=== PATIENT | female | born 1960 | race Two or more races ===

== ENCOUNTER 2019-12-14 07:35 | Day surgery (SDC) | payer BC ==
[2019-12-12 10:20] LABS: BASOPHILS % (AUTO) 0.4 % (0.0-2.0); EOSINOPHILS % (AUTO) 3.7 % (0.0-3.0); HEMATOCRIT 46.4 % (37.0-47.0); HEMOGLOBIN 14.8 G/DL (12.0-16.0); LYMPHOCYTES % (AUTO) 26.1 % (20.0-45.0); MEAN CORPUSCULAR VOLUME 95 FL (80-99); MONOCYTES % (AUTO) 13.2 % (1.0-10.0); NEUTROPHILS % (AUTO) 56.6 % (45.0-75.0); PLATELET COUNT 266 K/UL (150-450); RED BLOOD COUNT 4.87 M/UL (4.20-5.40); RED CELL DISTRIBUTION WIDTH 12.8 % (11.6-14.8)
[2019-12-12 10:32] LABS: ANION GAP 8 mmol/L (5-15); BLOOD UREA NITROGEN 14 mg/dL (7-18); CARBON DIOXIDE 26 MMOL/L (21-32); CHLORIDE 105 MMOL/L (98-107); CREATININE 0.9 MG/DL (0.55-1.30); POTASSIUM 4.4 MMOL/L (3.5-5.1); SODIUM 139 MMOL/L (136-145)
[2019-12-12 10:42] LABS: ALANINE AMINOTRANSFERASE 28 U/L (12-78); ALBUMIN 3.6 G/DL (3.4-5.0); ALBUMIN/GLOBULIN RATIO 0.9 (1.0-2.7); ALKALINE PHOSPHATASE 59 U/L (46-116); ASPARTATE AMINO TRANSFERASE 21 U/L (15-37); BILIRUBIN,TOTAL 1.7 MG/DL (0.2-1.0)
[2019-12-12 10:53] LABS: BILIRUBIN,DIRECT 0.3 MG/DL (0.0-0.3)
--- NOTE | 2019-12-12 11:00 | Pre-op HX & Phy Repo 2 SIG ---
DATE OF ENDOSCOPY: 12/14/2019 PRE-ENDOSCOPY HISTORY AND PHYSICAL SCHEDULED FOR KOCK POUCH ENDOSCOPY: 12/14/2019. HISTORY OF PRESENT ILLNESS: The patient is a 59-year-old female in overall good health who presented in September 2019 for consultation about difficulty with her Kock pouch continent ileostomy. She had a history of ulcerative colitis and underwent total colectomy with Shena ileostomy in 1981 and then there was an attempted reconnection of her ileum to the remaining rectum in 1982 that failed and in 1987, she underwent abdomino-perineal proctectomy with creation of a Kock pouch continent ileostomy. In 2007 she required revision for prolapse and her pouch was converted to a T-pouch version of the Kock pouch by Dr. Lei Weeks in [facility]. Recently, the patient has been bothered with increasing gas and difficulty intubating with episodes of vomiting. She has had to use a smaller 27-Tanzanian catheter instead of her usual 30-Tanzanian catheter. She also has had incontinence of gas with a full pouch. She intubates 4 times a day if she does not eat at all, but 8 times a day if she eats normally. Her output is always watery and she has had bleeding with the stool with every intubation. Following that consultation, I treated the patient with Cipro 500 mg orally every 12 hours and Flagyl 250 mg orally 3 times a day and within 24 hours of starting that regimen, she reported what she said was an amazing difference in how she felt. She was able to intubate only 3 to 4 times a day and sleep through the night. She is able to eat well with no difficulty intubating. She was still seeing some bleeding. The patient got off antibiotics and had another episode of pouchitis the end of October, went back on Cipro and Flagyl, and then she used an old catheter, but the tip of the catheter broke off and remains in the pouch. The patient is scheduled to undergo endoscopy for recurrent pouchitis to assess the status of the pouch mucosa and to extract the catheter remnant from her pouch with anesthesia sedation. PAST MEDICAL HISTORY/MEDICATIONS: Premarin. ALLERGIES: Penicillin. OPERATIONS: In addition to the above, sections. PHYSICAL EXAMINATION: GENERAL: The patient is 5 feet 2 inches, 152 pounds. She is arriving from out of town and will be examined upon arrival and dictated separately. IMPRESSION: 1. 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 2. History of ulcerative colitis. 3. Status post multiple abdominal operations. 3.1. Abdominal colectomy with Shena ileostomy in 1981. 3.2. Reconnection of ileum to rectum in 1982. 3.3. Abdomino-perineal proctectomy with creation of a Kock pouch continent ileostomy in 1987. 3.4. Revision of Kock pouch into the T-pouch version of the Kock pouch for prolapse in 2007. PLAN: I have had a full discussion with the patient regarding the nature of the condition, the nature of the pouch endoscopy that I will be assisting bilingual legal assistant, Dr. Camilo Kamara due to his expertise in not only diagnostic endoscopy, but therapeutic maneuvers, etc. All questions have been answered. She understands and agrees to proceed. Eron Mcrae M.D. DR: ROSA M JOB#: [id number] CC: LILIYA
[2019-12-14] VITALS (8 sets, daily range): BP systolic 115–129; BP diastolic 66–83
[~2019-12-14] VITALS: Ht 157.5 cm; Wt 64.9 kg
[~2019-12-14 07:35] MED LIST: ESTRACE1 MG ORAL; FISH OIL CAP1000 MG ORAL
[2019-12-14] MEDS ORDERED: LR 1000ml 1,000 ML IVLG SCH (08:00)
--- NOTE | 2019-12-14 08:26 | Pre-Procedure Note/Attestation ---
Pre-Procedure Note/Attestation Complete Prior to Procedure Planned Procedure: not applicable Procedure Narrative: Kock Pouch endoscopy Indications for Procedure Pre-Operative Diagnosis: Foreign body in Kock pouch and recurring pouchitis Attestation I attest that I discussed the nature of the procedure; its benefits; risks and complications; and alternatives (and the risks and benefits of such alternatives ), prior to the procedure, with the patient (or the patient's legal freight representative). I attest that, if there was a reasonable possibility of needing a blood transfusion, the patient (or the patient's legal freight representative) was given the [facility] standardized written summary, pursuant to the Diogenes Luis E Blood Safety Act ([place] Health and Safety Code # 1645, as amended). I attest that I re-evaluated the patient just prior to the surgery and that there has been no change in the patient's H&P, except as documented below: none Eron Mcrae MD Dec 14, 2019 08:26
[2019-12-14] MEDS ORDERED: Lidocaine 1% MPF 10mg/ml 5ml ONE (09:00)
[2019-12-14] MEDS ORDERED: LR 1000ml ONE (09:00)
--- NOTE | 2019-12-14 09:14 | Endoscopy Procedure Note ---
Endoscopy Procedure Note General Indication for Procedure: foreign body Procedures Performed: other - pouchoscopy Operative Findings/Diagnosis: same Specimen: none Pt Tolerated Procedure Well: Yes Estimated Blood Loss: none Anesthesia Anesthesiologist: everette Anesthesia: MAC Inserted Devices Implant(s) used?: No GI Core Measures 50 yrs or older w/o bx or poly: Not Applicable 10yrs. F/U recommended: Not Applicable Camilo Kamara MD Dec 14, 2019 09:14
--- NOTE | 2019-12-14 09:21 | General Progress Note ---
Progress Note Progress Note Patient underwent endoscopy with findings of redundant access segment (12cm stoma to tip of the nipple valve) but no angulations. Pouch mucosa normal - no inflammation or ulcerations foreign body (tip of Medena Catheter) removed by Dr. Kamara Imp: Recurrent pouchitis without endoscopic inflammation or ulcerations Plan; Discusses with patient options of intermittent Cipro + Flagyl, Xifaxan, Probiotics Will f/u as out-patient Eron Mcrae MD Dec 14, 2019 09:21
--- NOTE | 2019-12-14 09:22 | Immediate Post-Op Evaluation ---
Immediate Post-Op Evalulation Immediate Post-Op Evalulation Procedure: endo pouch removal of foregin body Date of Evaluation: Dec 14, 2019 Time of Evaluation: 09:22 IV Fluids: 500 Blood Pressure Systolic: 129 Blood Pressure Diastolic: 72 Pulse Rate: 69 Respiratory Rate: 14 O2 Sat by Pulse Oximetry: 98 Temperature (Fahrenheit): 97.7 Nausea: No Vomiting: No Complications none Patient Status: awake, reacts, patent Hydration Status: adequate Drug: none AaronriErmelinda hayden CRNA Dec 14, 2019 09:22
--- NOTE | 2019-12-14 09:24 | Anethesia Preoperative Eval ---
Anesthesia Pre-op PMH/ROS General Date of Evaluation: Dec 14, 2019 Time of Evaluation: 09:00 Anesthesiologist: wyatt ASA Score: ASA 2 Mallampati Score Class I : Soft palate, uvula, fauces, pillars visible Class II: Soft palate, uvula, fauces visible Class III: Soft palate, base of uvula visible Class IV: Only hard plate visible Mallampati Classification: Class II Surgeon: magno Diagnosis: foregin body Surgical Procedure: endopouch removal of foregin body Family History: no anesthesia problems Allergies: Coded Allergies: PENICILLINS (Verified Allergy, Intermediate, rash, 12/11/19) Medications: see eMAR Patient NPO?: Yes NPO Date: Dec 14, 2019 NPO Time: 00:01 Past Medical History Cardiovascular: Denies: HTN, CAD, ME, valve dz, arrhythmia, other Pulmonary: Denies: asthma, COPD, FABIANO, other Gastrointestinal/Genitourinary: Denies: GERD, CRI, ESRD, other Neurologic/Psychiatric: Denies: dementia, CVA, depression/anxiety, TIA, other Endocrine: Denies: DM, hypothyroidism, steroids, other Hematology/Immune: Denies: anemia, DVT, bleeding disorder, other Other: other - u. colitis with enod pouch Anesthesia Pre-op Phys. Exam Physician Exam Last Vital Signs Date Time Temp Pulse Resp B/P (MAP) Pulse Ox O2 Delivery O2 Flow Rate FiO2 12/14/19 08:31 97.0 71 18 125/83 100 Room Air Constitutional: NAD Neurologic: CN 2-12 intact Cardiovascular: RRR Respiratory: CTA Gastrointestinal: S/NT/ND Airway Exam Mallampati Classification 2 Mallampati Score: Class II MO: full Neck: normal TMD: 1fb ROM: full Dentures: no upper, no lower Anesthesia Pre-op A/P Studies Pre-op Studies: EKG - sr Risk Assessment & Plan Assessment: covid neg Plan: mac Status Change Before Surgery: No Pre-Antibiotics Drug: none Ermelinda Goins CRNA Dec 14, 2019 09:24
--- NOTE | 2019-12-14 10:42 | 48 Hour Post Anesthesia Eval ---
Post Anesthesia Evaluation Procedure: endo pouch removal of foregin body Date of Evaluation: Dec 14, 2019 Time of Evaluation: 10:42 Blood Pressure Systolic: 123 0: 66 Pulse Rate: 57 Respiratory Rate: 14 O2 Sat by Pulse Oximetry: 98 Airway: patent Nausea: No Vomiting: No Hydration Status: adequate Cardiopulmonary Status: stable Mental Status/LOC: patient returned to baseline Post-Anesthesia Complications: none Follow-up care needed: N/A Ermelinda Goins CRNA Dec 14, 2019 10:42
--- NOTE | 2019-12-14 11:15 | Procedure Note ---
DATE OF PROCEDURE: 12/14/2019 SURGEON: Camilo Kamara MD PROCEDURE: Pouchoscopy with foreign body removal. ANESTHESIA: Ermelinda Goins CRNA. INSTRUMENT: Olympus pediatric upper scope. INDICATION: Foreign body retained in the pouch. The procedure, risks, benefits, and possible consequences, including hemorrhage, aspiration, perforation and infection, and alternative treatments, were explained to the patient/legal guardian by Dr. Camilo Kamara and the patient/legal guardian understood and accepted these risks. DESCRIPTION OF PROCEDURE: After informed consent was obtained and the patient was adequately sedated, pediatric upper scope was introduced into the ostomy. There was about 14-cm piece of intestine before we got into the pouch. Then, we advanced this scope all the way into the jejunum. I would say up to about 20 cm into the jejunum. The valve in the pouch looked very good. No obvious ulcerations or bleeding. There was about 3-cm piece of tip of the catheter was retained in the pouch. Using a pediatric biopsy forceps, we grabbed the tip of it and gently removed it. The patient tolerated the procedure very well without any complication. SUMMARY OF FINDINGS: 1. Status post foreign body removal from the pouch. 2. A 14-cm intestine route before we get to the pouch. 3. Good-looking valve in the pouch. RECOMMENDATIONS: Monitor the patient post procedure. If pain-free, consider discharge with outpatient followup. I want to thank, Dr. Eron Mcrae, for this kind referral. Camilo Kamara M.D. DR: GERMAN JOB#: [id number] CC: Eron Mcrae M.D.; Fax#: [phone]
== END 2019-12-14 10:40 | disposition home or self-care (01) ==
LOC: GAS 07:35
DX: K94.19 Other complications of enterostomy (principal); K91.850 Pouchitis; Z90.49 Acquired absence of other specified parts of digestive tract; Z88.0 Allergy status to penicillin; R00.1 Bradycardia, unspecified
CPT/HCPCS: 36415; 44799; 80053; 82248; 85025; 85610; 85730; 93005; 94003; J2704; J7120; U0002; 94150